=== PATIENT | male | born 1970 | race Caucasian/White ===

== ENCOUNTER 2022-12-25 10:28 | Emergency (ER) | payer MEDICAID, SELFPAY ==
[2022-12-25] VITALS (8 sets, daily range): BP systolic 102–159; BP diastolic 64–99; PULSE 54–75; RESP 16–23; TEMP 36.6–36.8; O2SAT 96–98; BMI 29.5
--- NOTE | 2022-12-25 10:28 | ECG_ITS ---
APPROVED REPORT Exam: Resting ECG HR:70 bpm ECG Measurements Heart Rate 70 AXES NH 193 P 57 QRSd 108 QRS 93 QT 388 T 8 QTc 408 Conclusion SINUS RHYTHM BORDERLINE RIGHT AXIS DEVIATION [QRS AXIS > 90] BORDERLINE ECG UNCONFIRMED REPORT Electronically signed by : Luca Prado MD 12/25/2022 19:33:42
--- NOTE | 2022-12-25 10:33 | HMH.EDGENADL ---
Discharge Plan Disposition Patient Disposition: Home, Self-Care Condition: Good Referrals Follow up/Referrals: Juan Vincent MD [Staff Physician] - See instructions (Please follow-up with Dr. Vincent tomorrow December 26 at 11 AM as a walk-in appointment per Dr. Vincent) Clinical Impressions Clinical Impression: Chest pain Discharge ED Provider: Cathy Del Angel General Adult HPI General Chief complaint: Chest Pain Stated complaint: CHEST PAIN Time Seen by Provider: 12/25/22 10:33 History of Present Illness HPI narrative: Patient is a 52-year-old male with a history of coronary artery disease and 4 stents in the past most recent left heart cath and intervention was in June of last year in [place] who presents today with substernal and left anterior chest wall pain radiating to his left shoulder and left arm worsened with exertion similar to his heart attacks he had in the past currently without any ongoing pain. States the symptoms lasted 2 hours. He tells me that in the past he had a maker. 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 This morning he did take his daily 81 mg aspirin as well as his Brilinta. Related Data Allergies Allergy/AdvReac Type Severity Reaction Status Date / Time Unable to Assess Allergy Verified 12/25/22 10:35 [facility] Disclaimer: The information contained in this section may have been updated after the patient was seen, as this information can be updated by other users. Social History Smoking Status: Current every day smoker alcohol intake: never current occupational status: other Travel in the last 8 weeks: None ROS Obtained: Yes All systems reviewed & no additional complaints except as documented Physical Exam General General appearance: alert Respiratory Respiratory exam: Present normal lung sounds bilaterally; Absent respiratory distress, wheezes or stridor Cardiovascular Cardiovascular exam: Present regular rate; Absent tachycardia Abdominal Exam Abdominal exam: Present soft; Absent distention, tenderness or guarding Neurological Exam Neurological exam: Present alert; Absent oriented X3 or CN II-XII intact Medical Decision Making Kapil Inquiry Pt receiving controlled substance: No Kapil was queried for this patient: No Vital Signs: 12/25/22 10:35 12/25/22 10:44 12/25/22 11:30 Temperature 98.2 F Temperature Source Oral Pulse Rate 68 61 Pulse Rate [Left Radial] 75 Respiratory Rate 20 17 Blood Pressure 154/94 H 116/67 Blood Pressure [Right Arm] 159/99 H Blood Pressure Mean 83 Blood Pressure Mean [Right Arm] 119 02 Sat by Pulse Oximetry 98 98 98 Oxygen Delivery Method Room Air Room Air Room Air 12/25/22 12:00 12/25/22 12:30 12/25/22 13:00 Temperature Temperature Source Pulse Rate 56 L 57 L 54 L Pulse Rate [Left Radial] Respiratory Rate 20 23 Blood Pressure 106/66 L 111/73 102/64 L Blood Pressure [Right Arm] Blood Pressure Mean 80 80 71 Blood Pressure Mean [Right Arm] 02 Sat by Pulse Oximetry 96 97 97 Oxygen Delivery Method Room Air 12/25/22 13:30 Temperature Temperature Source Pulse Rate 54 L Pulse Rate [Left Radial] Respiratory Rate Blood Pressure 123/83 Blood Pressure [Right Arm] Blood Pressure Mean 96 Blood Pressure Mean [Right Arm] 02 Sat by Pulse Oximetry 96 Oxygen Delivery Method Room Air Lab Data Lab results reviewed: Yes I reviewed the patient's lab results. Lab Results 12/25/22 10:34: WBC 8.9, RBC 5.20, Hgb 15.9, Hct 46.9, MCV 90.3, MCH 30.5, MCHC 33.8, RDW 13.4, Plt Count 166, MPV 8.8, Neut % (Auto) 60.0, Lymph % (Auto) 27.4, [place] % (Auto) 9.4 H, Eos % (Auto) 1.8, Baso % (Auto) 1.3, Neut # (Auto) 5.3, Lymph # (Auto) 2.4, [place] # (Auto) 0.8, Eos # (Auto) 0.2, Baso # (Auto) 0.1 12/25/22 10:34: Sodium 137, Potassium 3.9, Chloride 105, Carbon Dioxide 25, Anion Gap 10.9, BUN 16, Creatinine 0.
--- NOTE | 2022-12-25 10:35 | PC.NURSE ---
er at bedside
--- NOTE | 2022-12-25 10:39 | XR_ITS ---
FINAL REPORT CLINICAL HISTORY: chest pain FINDINGS: SINGLE-VIEW CHEST The heart size is normal. The mediastinum is normal. The lungs are clear. There is no pneumothorax. IMPRESSION: No acute cardiopulmonary process. Reviewed, Interpreted and Dictated by Dawit Porter III, MD Transcribed by Tri Jordan Authenticated and [facility]
[2022-12-25 10:51] LABS: Basophils # 0.1 K/mm3 (0-0.2); Basophils % 1.3 % (0.1-2.0); Eosinophils # 0.2 K/mm3 (0.0-0.4); Eosinophils % 1.8 % (0.1-12.0); Hematocrit 46.9 % (42.0-52.0); Hemoglobin 15.9 g/dL (14.1-18.0); Lymphocytes # 2.4 K/mm3 (0.7-4.5); Lymphocytes % 27.4 % (10-50); Mean Corpuscular HGB Conc 33.8 g/dL (31.8-35.4); Mean Corpuscular Hemoglobin 30.5 pg (27.0-31.2); Mean Corpuscular Volume 90.3 fl (80-94); Mean Platelet Volume 8.8 fl (7.4-10.4); Monocytes # 0.8 K/mm3 (0.1-1.0); Monocytes % 9.4 % (1.7-9.3); Neutrophils # 5.3 K/mm3 (1.8-7.8); Platelet Count 166 K/mm3 (142-424); Red Cell Distribution Width 13.4 % (11.5-17.5); White Blood Count 8.9 K/mm3 (4.8-10.8)
[2022-12-25 10:57] LABS: Chloride 105 mmol/L (98-107); Sodium 137 mmol/L (136-145)
[2022-12-25 10:58] LABS: Potassium 3.9 mmoL/L (3.5-5.1)
[2022-12-25 11:00] LABS: Alanine Aminotransferase 27 U/L (12-78); Albumin Level 4.6 g/dl (3.5-5.0); Albumin/Globulin Ratio 1.5 (1.1-1.8); Alkaline Phosphatase 114 U/L (38-126); Anion Gap 10.9 mEq/L (5-15); Aspartate Amino Transferase 29 U/L (17-59); Bilirubin,Total 0.6 mg/dl (0.2-1.3); Blood Urea Nitrogen 16 mg/dl (9-20); Calcium 8.9 mg/dl (8.4-10.2); Carbon Dioxide 25 mmol/L (22.0-30.0); Creatinine Clearance Estimated 138 mL/min (50-200); Estimated Glomerular Filt Rate 88 ml/min (>60); GFR (African American) 106 ML/MIN (>60); Globulin 3.1 g/dL (1.3-3.2); Glucose 220 mg/dl (74-100); Lipase 102 U/L (23-300); Total Protein,Serum 7.7 g/dl (6.3-8.2)
[2022-12-25 11:04] LABS: INR 0.92 (0.9-1.1)
[2022-12-25 11:19] LABS: Troponin I < 0.01 ng/ml (0.00-0.034)
--- NOTE | 2022-12-25 11:38 | PC.NURSE ---
pt is sleeping no complaints
--- NOTE | 2022-12-25 13:01 | PC.NURSE ---
rounded on pt, pillow given
--- NOTE | 2022-12-25 13:39 | PC.NURSE ---
DR TOURE SPEAKING WITH DR DANIELS
--- NOTE | 2022-12-25 13:54 | PC.NURSE ---
checked on pt needs to use restroom but lab is at bedside. he will call out when there finished
--- NOTE | 2022-12-25 14:30 | PC.NURSE ---
pt sleeping no complaints at this time
--- NOTE | 2022-12-25 14:52 | PC.NURSE ---
pt is resting in bed no complaints at this time
--- NOTE | 2022-12-25 15:10 | PC.NURSE ---
er at bedside
[2022-12-25 15:18] LABS: Troponin I < 0.01 ng/ml (0.00-0.034)
--- NOTE | 2022-12-25 15:41 | PC.NURSE ---
called dietary to get pt a sandwich and bag of chips
== END 2022-12-25 15:55 | disposition home or self-care (01) ==
PROVIDERS: Emergency Provider Student in an Organized Health Care Education/Training Program
DX: R07.89 Other chest pain (principal); I25.10 Atherosclerotic heart disease of native coronary artery without angina pectoris; F17.210 Nicotine dependence, cigarettes, uncomplicated
CPT/HCPCS: 36415; 71045; 80053; 83690; 84484; 85025; 85610; 93005; 99285

== ENCOUNTER 2023-01-01 11:57 | Inpatient (IN) | payer OTHER, SELFPAY ==
[2023-01-01] VITALS (25 sets, daily range): BP systolic 101–175; BP diastolic 61–111; PULSE 45–74; RESP 16–20; TEMP 36.7–37; O2SAT 91–100; BMI 30.2; BMI 31.1
--- NOTE | 2023-01-01 11:59 | ECG_ITS ---
APPROVED REPORT Exam: Resting ECG HR:67 bpm ECG Measurements Heart Rate 67 AXES OR 204 P 62 QRSd 102 QRS 98 QT 382 T -15 QTc 397 Conclusion SINUS RHYTHM BORDERLINE RIGHT AXIS DEVIATION [QRS AXIS > 90] NONSPECIFIC ST & T-WAVE ABNORMALITY ABNORMAL ECG UNCONFIRMED REPORT Electronically signed by : Luca Prado MD 01/01/2023 17:05:20
--- NOTE | 2023-01-01 11:59 | XR_ITS ---
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 Pt states he just started taking a new medication w side affects of CP. COMPARISON: 12/25/2022 FINDINGS: A single PA view of the chest was obtained. There is no prior exam for comparison. The cardiac and mediastinal silhouettes are within normal limits. The lungs are clear. There is no effusion or pneumothorax. No acute osseous abnormality is identified. IMPRESSION: No radiographic evidence of acute cardiac or pulmonary disease on this single view of the chest. Reviewed, Interpreted and Dictated by Brunilda Gabriel MD Transcribed by Tri Jordan Authenticated and [facility]
--- NOTE | 2023-01-01 12:00 | HMH.EDGENADL ---
Discharge Plan Disposition Patient Disposition: Admitted As Inpatient Condition: Serious Clinical Impressions Clinical Impression: Acute non-ST elevation myocardial infarction (NSTEMI) Discharge ED Provider: Valentina Dubois Adult HPI General Chief complaint: Chest Pain Stated complaint: chestpain Time Seen by Provider: 01/01/23 11:59 Mode of Arrival: Ambulatory Source of Information: Patient Limitations: No Limitations History of Present Illness HPI narrative: 52-year-old male presenting to the emergency department with chest pain. Pain started yesterday afternoon. It is located on the left side of his chest. Described as burning and aching. Had episodes of pain overnight, but was able to sleep. Today, pain is worse. It is located in the front of the chest. No radiation of the jaw, arm, back. No particular association with eating, breathing, movement or exertion. He has a history of coronary artery disease. Says he had 2 heart attacks. Most recent was within the last year in [place]. He received stents. He now sees Dr. Vincent. Takes atorvastatin, isosorbide mononitrate, nitroglycerin as needed. He has not taken nitro yet today. No fevers, chills, cough, shortness of breath, weakness, nausea, diaphoresis Related Data Home Medications Medication Instructions Recorded Confirmed aspirin 81 mg tablet 81 mg PO DAILY Heart 12/26/22 01/01/23 ticagrelor 90 mg tablet (Brilinta) 90 mg PO BID Blood thinner 12/26/22 01/01/23 atorvastatin 10 mg tablet (Lipitor) 10 mg PO DAILY Cholesterol 01/01/23 01/01/23 isosorbide mononitrate 30 mg 30 mg PO DAILY Chest pain 01/01/23 01/01/23 tablet,extended release 24 hr nitroglycerin 0.4 mg sublingual 0.4 mg sublingual Q5M PRN Chest 01/01/23 01/01/23 tablet Pain Allergies Allergy/AdvReac Type Severity Reaction Status Date / Time Unable to Assess Allergy Verified 12/26/22 11:15 [facility] Disclaimer: The information contained in this section may have been updated after the patient was seen, as this information can be updated by other users. Medical History (Updated 01/01/23 @ 13:39 by Kitty Hebert APRN) Abnormal electrocardiogram [ECG] [EKG] Acute non-ST elevation myocardial infarction (NSTEMI) CAD (coronary atherosclerotic disease) Dyspnea Ex-smoker Hx of myocardial infarction Hyperlipidemia Hypertension Unstable angina Surgical History (Updated 12/26/22 @ 11:16 by Lori Valenzuela) History of cardiac cath History of heart artery stent Social History Smoking Status: Never smoker alcohol intake: never current occupational status: other Travel in the last 8 weeks: None ROS Obtained: Yes All systems reviewed & no additional complaints except as documented Constitutional Constitutional: Denies chills, Denies fever(s) and Denies headache(s) ENT Ears, Nose, Mouth, and Throat: Denies dizziness, Denies headache(s), Denies neck pain and Denies sore throat Cardiovascular Cardiovascular: Reports chest pain, Reports chest pain at rest, Denies dyspnea, Denies palpitations and Denies rapid heart rate Respiratory Respiratory: Denies cough, Denies dyspnea and Denies pain with breathing Gastrointestinal Gastrointestingal: Denies abdominal pain, nausea or vomiting Musculoskeletal Musculoskeletal: Denies back pain, Denies myalgias and Denies neck pain Neurologic Neurologic: Denies dizziness and Denies headache(s) Endocrine Endocrine: Denies palpitations Physical Exam General General appearance: alert and in no apparent distress Head Head exam: atraumatic and normocephalic Eye Eye exam: Present normal appearance and EOMI; Absent conjunctival redness or jaundice ENT ENT exam: Present normal exam, normal oropharynx and mucous membranes moist Chest Chest inspection: Present normal inspection Respiratory Respiratory exam: Present normal lung sounds bilaterally; Absent respiratory distress or wheezes
[2023-01-01 12:11] LABS: Basophils # 0.1 K/mm3 (0-0.2); Basophils % 0.9 % (0.1-2.0); Eosinophils # 0.2 K/mm3 (0.0-0.4); Eosinophils % 1.5 % (0.1-12.0); Hematocrit 44.6 % (42.0-52.0); Hemoglobin 15.1 g/dL (14.1-18.0); Lymphocytes # 2.2 K/mm3 (0.7-4.5); Lymphocytes % 20.2 % (10-50); Mean Corpuscular HGB Conc 33.8 g/dL (31.8-35.4); Mean Corpuscular Hemoglobin 30.4 pg (27.0-31.2); Mean Corpuscular Volume 89.7 fl (80-94); Mean Platelet Volume 10.2 fl (7.4-10.4); Monocytes # 0.9 K/mm3 (0.1-1.0); Monocytes % 7.9 % (1.7-9.3); Neutrophils # 7.7 K/mm3 (1.8-7.8); Neutrophils % 69.5 % (37.0-80.0); Platelet Count 172 K/mm3 (142-424); Red Blood Count 4.97 M/mm3 (4.60-6.20); Red Cell Distribution Width 13.2 % (11.5-17.5)
[2023-01-01 12:18] LABS: Chloride 101 mmol/L (98-107)
[2023-01-01 12:19] LABS: Potassium 3.8 mmoL/L (3.5-5.1); Sodium 136 mmol/L (136-145)
[2023-01-01 12:21] LABS: Alanine Aminotransferase 33 U/L (12-78); Albumin Level 4.6 g/dl (3.5-5.0); Albumin/Globulin Ratio 1.6 (1.1-1.8); Alkaline Phosphatase 108 U/L (38-126); Anion Gap 12.8 mEq/L (5-15); Aspartate Amino Transferase 63 U/L (17-59); Bilirubin,Total 0.6 mg/dl (0.2-1.3); Blood Urea Nitrogen 14 mg/dl (9-20); Carbon Dioxide 26 mmol/L (22.0-30.0); Creatinine Clearance Estimated 141 mL/min (50-200); Estimated Glomerular Filt Rate 88 ml/min (>60); GFR (African American) 106 ML/MIN (>60); Globulin 2.9 g/dL (1.3-3.2); Total Protein,Serum 7.5 g/dl (6.3-8.2)
[2023-01-01 12:22] LABS: Calcium 8.8 mg/dl (8.4-10.2); Glucose 224 mg/dl (74-100)
--- NOTE | 2023-01-01 12:26 | PC.NURSE ---
rad at bs for portable xray
[2023-01-01 12:36] LABS: Troponin I 2.02 ng/ml (0.00-0.034)
--- NOTE | 2023-01-01 12:37 | ECG_ITS ---
APPROVED REPORT Exam: Resting ECG HR:58 bpm ECG Measurements Heart Rate 58 AXES WV 198 P 61 QRSd 113 QRS 94 QT 419 T -10 QTc 416 Conclusion SINUS BRADYCARDIA BORDERLINE RIGHT AXIS DEVIATION [QRS AXIS > 90] MODERATE INTRAVENTRICULAR CONDUCTION DELAY [110+ ms QRS DURATION] MINIMAL ST DEPRESSION [0.025+ mV ST DEPRESSION] ABNORMAL QRS-T ANGLE [QRS-T AXIS DIFFERENCE > 60] ABNORMAL ECG UNCONFIRMED REPORT Electronically signed by : Luca Prado MD 01/01/2023 17:05:06
--- NOTE | 2023-01-01 12:37 | PC.NURSE ---
critical troponin called from lab. notified.
--- NOTE | 2023-01-01 12:44 | PC.NURSE ---
did second ekg at er md request, pt had no complaints at this time call light at bedside
--- NOTE | 2023-01-01 13:18 | PC.NURSE ---
per ER she spoke with anabell cyr from cardiology, states will come see pt
--- NOTE | 2023-01-01 13:20 | PC.NURSE ---
collected covid swab and sent to lab
[2023-01-01 13:23] LABS: Coronavirus 19, PCR Not Detected (NotDetected); Influenza A, PCR Not Detected (NotDetected); Influenza B, PCR Not Detected (NotDetected)
--- NOTE | 2023-01-01 13:25 | PC.NURSE ---
jossie cyrn at BS
--- NOTE | 2023-01-01 13:27 | PC.NURSE ---
anabell cyr states pt is going to go to cardiac cath lab manager today.
--- NOTE | 2023-01-01 13:34 | EXP.CARD.CON ---
History of Present Illness History of Present Illness Consult date: 01/01/23 Requesting physician: Valentina Dubois Consult reason: chest pain Chief complaint: chest pain History of present illness: This is a 52-year-old white gentleman who presented to the emergency department complaints of chest pain. He states that his chest pain started last night. Is located in the left side of his chest. He describes this as a burning, aching and tight sensation. He states it is associated with nausea, vomiting, shortness of breath and diaphoresis. He states that this radiates to his left arm and his back. The patient states that at its worst is a 7 out of 10 in intensity. He states the pain kept him up all night long and he noticed the pain after taking isosorbide and Lipitor last night. He attributed this to side effects of the medications but when the pain was still present this morning he called the cardiology office and decided to come into the emergency department. He states that nothing really worsens the pain and nothing is helping to improve the pain. He does report a history of coronary artery disease with 2 previous MIs. He states his most recent catheterization was in [place] within the last year and he had stents placed. He is on Brilinta and aspirin. He denies any lower extremity edema. He denies any fever, chills, diarrhea, PND or orthopnea. During my examination the patient states that he is still having pain and it does not seem to be going away. He states he feels extremely fatigued and just does not feel right. [facility] Disclaimer: The information contained in this section may have been updated after the patient was seen, as this information can be updated by other users. Medical History (Updated 01/01/23 @ 13:39 by Kitty Hebert APRN) Abnormal electrocardiogram [ECG] [EKG] Acute non-ST elevation myocardial infarction (NSTEMI) CAD (coronary atherosclerotic disease) Dyspnea Ex-smoker Hx of myocardial infarction Hyperlipidemia Hypertension Unstable angina Surgical History (Updated 12/26/22 @ 11:16 by Lori Valenzuela) History of cardiac cath History of heart artery stent Social History Smoking Status: Never smoker alcohol intake: never current occupational status: other Travel in the last 8 weeks: None Review of Systems Review of Systems Review of systems:: pertinent systems reviewed and negative unless documented below Constitutional Constitutional: Reports system reviewed and no additional complaints, except as documented and Denies headache(s) Eyes Eyes: Reports system reviewed and no additional complaints, except as documented ENT Ears, Nose, Mouth, and Throat: Reports system reviewed and no additional complaints, except as documented, Denies dizziness and Denies headache(s) *Cardiovascular Cardiovascular: Reports system reviewed and no additional complaints, except as documented, Reports chest pain, Reports chest pain at rest, Reports chest pain with activity, Reports diaphoresis, Reports dyspnea, Reports dyspnea on exertion and Reports radiating jaw, neck or arm pain *Respiratory Respiratory: Reports system reviewed and no additional complaints, except as documented, Reports dyspnea and Reports dyspnea on exertion *Gastrointestinal Gastrointestinal: Reports system reviewed and no additional complaints, except as documented, Reports nausea and Reports vomiting *Genitourinary Genitourinary: Reports system reviewed and no additional complaints, except as documented *Musculoskeletal Musculoskeletal: Reports system reviewed and no additional complaints, except as documented Integumentary/Breasts Skin/Breast: Reports system reviewed and no additional complaints, except as documented *Neurologic Neurologic: Reports system reviewed and no additional complaints, except as documented, Denies dizziness and Denies headache(s) Psychiatric Psychiatric: Reports system rev
--- NOTE | 2023-01-01 13:40 | PC.NURSE ---
Pt placed into gown and prepped to go to lab technician. pts belongings placed into belonging bags with his name labels on bag.
--- NOTE | 2023-01-01 13:41 | PC.NURSE ---
ILA SAMANO speaking with dr. pires
--- NOTE | 2023-01-01 13:42 | PC.NURSE ---
notified care management of admission
--- NOTE | 2023-01-01 13:54 | IR_ITS ---
APPROVED REPORT Patient Location: Emergent Section Housekeeper: CESARIO Claudio RT (R) PROCEDURES Left heart catheterization Left ventriculogram Selective coronary angiogram Drug-eluting stent deployment to the proximal mid and distal dominant right coronary INDICATION Acute non-ST elevation myocardial infarction, Coronary artery disease Informed consent was obtained prior to the procedure. COMPLICATIONS None Estimated Blood Loss: Less than 10 mls TECHNIQUE One percent lidocaine used to anesthetize the right anterior aspect of the wrist. The right radial artery was accessed via the Seldinger technique. A 6 Sami sheath was placed in the right radial artery. 2.5 mg of verapamil, 800 mcg of nitroglycerin, 1mg Lidocaine and 5000 U Heparin were given through the arterial sheath. The papa catheter was also used to perform left heart catheterization, left ventriculogram and selective coronary angiogram. At the end the diagnostic angiogram therapeutic heparin was administered giving a therapeutic ACT and the guide catheter was used to intubate the right coronary artery followed by Choice PT extra-support wire. A 3.5 x 38 mm resolute [place] stent was deployed at 20 kendrick reducing the critical stenosis to 0%. An additional 3.5 x 38 mm resolute [place] stent was placed distal to the for stent yet still overlapping and deployed at 15 kendrick reducing the critical stenosis to 0%. The balloon was brought back between the 2 stents and deployed at 20 kendrick to mesh the 2 stents. At the end of the procedure the apparatus was removed the sheath was removed good hemostasis was achieved using TR banding patient was transferred to the postop putting in stable condition. DAKOTA I flow was present at the beginning of the procedure with DAKOTA-3 flow at the end of the procedure ANGIOGRAPHIC RESULTS The left main artery Has an ostial 20% stenosis and a distal 30% stenosis The left anterior descending artery Has a proximal concentric calcified 70 to 80% stenosis immediately adjacent to a large first diagonal artery. There is an additional 30 to 40% mid vessel stenosis. The large first diagonal artery has an ostial proximal 70 to 80% stenosis The circumflex artery Is a nondominant yet still large vessel with a proximal 60 to 70% stenosis in a large obtuse marginal artery The right coronary artery Is a large dominant vessel and subtotally occluded in the proximal segment. Once the stent procedure was complete there was excellent inline flow with wide patency of the proximal mid and distal dominant right coronary artery. The posterior lateral branch and posterior descending artery had diffuse 20 and 30% stenoses The LARKIN ventriculogram reveals Dilated ventricle ejection fraction 55% The left ventricular end-diastolic pressure Severe to critically elevated at 55 mmHg IMPRESSION Critical coronary disease as described above Successful reconstruction of the proximal mid and distal dominant right coronary artery critical disease reduced to 0% with 2 contiguous drug-eluting stents Persistent severe stenosis in the proximal LAD involving a large first diagonal artery as well as a large first obtuse marginal artery Slight left ventricular dilatation with preserved ejection fraction Critically elevated LVEDP PLAN 1. Dual antiplatelet therapy 2. LDL less than 55 to be achieved with high intensity statin 3. ALEXANDER inhibitor's beta-blockers 4. Avoidance of tobacco products 5. Patient be brought back to the Director Targeted Marketing in 2 weeks and will undergo staged stenting of the proximal LAD and first diagonal artery as well as the first obtuse marginal artery 6. Cardiac rehabilitation after the subsequent staged stent procedure 7. Diuretics prio
--- NOTE | 2023-01-01 13:55 | PC.NURSE ---
dr andrews at bedside
--- NOTE | 2023-01-01 14:06 | PC.NURSE ---
rad is currently at bedside doing an echo
--- NOTE | 2023-01-01 14:07 | HMH.PHAINT1 ---
Pharmacy Intervention Comments: Medication reconciliation completed using external fill history and med list from 12/26/22 office visit.
--- NOTE | 2023-01-01 14:18 | PC.WOUNDNOTE ---
spoke to adriana in the oil field laborer said in about 20 minutes pt could be taken to the oil field laborer
[2023-01-01 15:37] LABS: CATHL Activated Clotting Time > 400 SEC (74-125)
--- NOTE | 2023-01-01 16:08 | EXP.HP ---
History of Present Illness *Admission Date: 01/01/23 *Reason for visit:: Chief complaint: Chest pain *History of present illness: This is a 52-year-old male that presents to [facility] emergency department secondary to chest pain. His past medical history significant for coronary artery disease, previous heart attacks, medical noncompliance and uncontrolled blood sugars. He reports that he has been experiencing chest pain since early December and went to see a fast food cook on December 26 to discuss his symptomatology. He reported intermittent chest pain that would last approximately 20 minutes and radiate to his left chest area and down his arms creating some numbness to his hands. The pain would be approximately a 4 on a 1-10 scale but occasionally will get up to 7. He reported associated shortness of breath with exertion. He was placed on cardioprotective medications and a plan was made for further cardiovascular assessment. Last night he reports that he started experiencing chest pain again characterized as burning, aching and tightness. The pain last night got above a 7 on a 1-10 pain scale. It radiated to his left chest and down his arms. He experienced associated nausea. He presented to the ED for further evaluation. In the ED his troponin level was elevated and his EKG identified nonspecific ST-T changes. His HEART Score = 7 and his DAKOTA score = 5. Cardiology was consulted out of the ED. [facility] Medical History (Updated 01/01/23 @ 16:13 by Jaciel Donovan MD) CAD (coronary atherosclerotic disease) Ex-smoker Hx of myocardial infarction Hyperlipidemia Hypertension Tobacco dependence Unstable angina Surgical History (Updated 12/26/22 @ 11:16 by Lori Valenzuela) History of cardiac cath History of heart artery stent Family History (Updated 01/01/23 @ 16:13 by Jaciel Donovan MD) Mother Motor vehicle accident Father Homicide Social History (Updated 01/01/23 @ 16:14 by Jaciel Donovan MD) Smoking Status: Former smoker years smoked: 35 smoking status stop date: November 2022 alcohol intake: never current occupational status: other Travel in the last 8 weeks: None Review of Systems Review of Systems Review of systems:: pertinent systems reviewed and negative unless documented below Constitutional Constitutional: Denies headache(s) ENT Ears, Nose, Mouth, and Throat: Denies dizziness and Denies headache(s) *Cardiovascular Cardiovascular: Reports chest pain, Reports chest pain at rest, Reports dyspnea, Reports dyspnea on exertion, Denies palpitations and Reports radiating jaw, neck or arm pain *Respiratory Respiratory: Reports dyspnea and Reports dyspnea on exertion *Neurologic Neurologic: Reports system reviewed and no additional complaints, except as documented, Denies dizziness and Denies headache(s) Endocrine Endocrine: Denies palpitations Meds Home Medications and Allergies Home Medications Medication Instructions Recorded Confirmed Type aspirin 81 mg tablet 81 mg PO DAILY Heart 12/26/22 01/01/23 History ticagrelor 90 mg tablet (Brilinta) 90 mg PO BID Blood thinner 12/26/22 01/01/23 History atorvastatin 10 mg tablet (Lipitor) 10 mg PO DAILY Cholesterol 01/01/23 01/01/23 History isosorbide mononitrate 30 mg 30 mg PO DAILY Chest pain 01/01/23 01/01/23 History tablet,extended release 24 hr nitroglycerin 0.4 mg sublingual 0.4 mg sublingual Q5M PRN Chest 01/01/23 01/01/23 History tablet Pain New Prescriptions to Start Prescriptions: Allergies Allergy/AdvReac Type Severity Reaction Status Date / Time latex Allergy Verified 01/01/23 14:50 Exam Data for Last 24 hours Vital signs and Labs for Last 24 Hours: Temp Pulse Resp BP Pulse Ox 98.3 F 67 18 113/76 91 L 01/01/23 12:08 01/01/23 15:40 01/01/23 15:40 01/01/23 15:40 01/01/23 15:40 Laboratory Results - last 24 hr 01/01/23 12:02: WBC 11.0 H, RBC 4.97, Hgb 15.1,
--- NOTE | 2023-01-01 18:20 | PC.NURSE ---
A&OX4. TOLERATING RA WELL. PT STATES HE FEELS MUCH BETTER AT THIS TIME. ADEQUATE U/O AND LARGE APPETITE. NO NEEDS OR C/O SINCE ARRIVAL TO FLOOR. VSS. CATH SITE TO TO R WRIST, CDI.
[2023-01-01 19:59] LABS: POC Glucose,Bedside 129 (70-110)
[2023-01-02] VITALS: BP 112/60; PULSE 63; PULSE 70; RESP 18; TEMP 37.4; O2SAT 97
[2023-01-02 02:34] LABS: POC Glucose,Bedside 172 (70-110)
[2023-01-02 04:00] VITALS: BP 105/57; PULSE 60; RESP 18; TEMP 37.4; O2SAT 96; BMI 29.9
--- NOTE | 2023-01-02 05:28 | PC.NURSE ---
pt. rested well t/o shift. no c/o pain. radial band was removed, telfa and tegaderm were applied to site, cdi at this time. call russo is in reach.
[2023-01-02 06:10] LABS: POC Glucose,Bedside 159 (70-110)
[2023-01-02 06:46] LABS: Basophils # 0.1 K/mm3 (0-0.2); Basophils % 0.8 % (0.1-2.0); Eosinophils # 0.2 K/mm3 (0.0-0.4); Eosinophils % 1.6 % (0.1-12.0); Hematocrit 45.3 % (42.0-52.0); Hemoglobin 15.5 g/dL (14.1-18.0); Lymphocytes # 2.4 K/mm3 (0.7-4.5); Lymphocytes % 24.3 % (10-50); Mean Corpuscular HGB Conc 34.1 g/dL (31.8-35.4); Mean Corpuscular Hemoglobin 30.5 pg (27.0-31.2); Mean Corpuscular Volume 89.5 fl (80-94); Mean Platelet Volume 9.2 fl (7.4-10.4); Monocytes % 9.5 % (1.7-9.3); Neutrophils # 6.4 K/mm3 (1.8-7.8); Neutrophils % 63.7 % (37.0-80.0); Platelet Count 192 K/mm3 (142-424); Red Blood Count 5.06 M/mm3 (4.60-6.20); Red Cell Distribution Width 13.4 % (11.5-17.5)
[2023-01-02 06:57] LABS: Alanine Aminotransferase 36 U/L (12-78); Albumin Level 4.4 g/dl (3.5-5.0); Alkaline Phosphatase 109 U/L (38-126); Anion Gap 11.8 mEq/L (5-15); Aspartate Amino Transferase 79 U/L (17-59); Bilirubin,Direct 0.3 mg/dl (0.0-0.4); Bilirubin,Indirect 0.6 mg/dL (0.0-0.9); Bilirubin,Total 0.9 mg/dl (0.2-1.3); Bilirubin,Unconjugated 0.6 mg/dL (0.0-1.1); Blood Urea Nitrogen 13 mg/dl (9-20); Calcium 8.9 mg/dl (8.4-10.2); Carbon Dioxide 26 mmol/L (22.0-30.0); Chloride 102 mmol/L (98-107); Chol/HDL Ratio 7.4 (1-3.5); Cholesterol 228 mg/dl (140-200); Creatinine Clearance Estimated 130 mL/min (50-200); Estimated Glomerular Filt Rate 78 ml/min (>60); GFR (African American) 94 ML/MIN (>60); Glucose 169 mg/dl (74-100); HDL Cholesterol 31 mg/dl (40-60); Potassium 3.8 mmoL/L (3.5-5.1); Sodium 136 mmol/L (136-145); Total Protein,Serum 7.2 g/dl (6.3-8.2)
[2023-01-02 06:59] LABS: Magnesium 2.4 mg/dl (1.6-2.3)
[2023-01-02 07:06] LABS: NT Pro Brain Natriuretic Pep. 319 pg/mL (0-125)
[2023-01-02 07:08] LABS: Direct LDL Cholesterol 68.99 mg/dL (100-129)
[2023-01-02 07:19] LABS: Triglycerides 860 mg/dl (30-150)
[2023-01-02 08:00] VITALS: BP 149/66; PULSE 60; PULSE 67; RESP 22; TEMP 36.7; O2SAT 96
[2023-01-02 08:23] LABS: Hemoglobin A1C 6.8 % (4.0-6.0)
--- NOTE | 2023-01-02 09:00 | EXP.CARD.PN ---
Subjective Subjective Date: 01/02/23 Time: 08:30 Principal diagnosis: nonstemi, CAD Interval history: This is a 52-year-old gentleman who presented to the emergency department complaints of chest pain. He was found to have a non-STEMI and underwent left cardiac catheterization yesterday. The patient had 2 stents placed to his right coronary artery with persistent disease to the LAD and first diagonal artery which will need to be addressed in approximately 2 weeks. This morning he denies any chest pain or pressure. He denies any shortness of breath or edema. He denies any fever, chills, nausea, vomiting, diarrhea, PND orthopnea. The patient states that he feels much better now than he did prior to coming into the hospital. Exam Data for Last 24 hours Vital signs and Labs for Last 24 Hours: Temp Pulse Resp BP Pulse Ox 98.1 F 67 22 149/66 H 96 01/02/23 08:00 01/02/23 08:00 01/02/23 08:00 01/02/23 08:00 01/02/23 08:00 Laboratory Results - last 24 hr 01/01/23 12:02: WBC 11.0 H, RBC 4.97, Hgb 15.1, Hct 44.6, MCV 89.7, MCH 30.4, MCHC 33.8, RDW 13.2, Plt Count 172, MPV 10.2, Neut % (Auto) 69.5, Lymph % (Auto) 20.2, Campbell % (Auto) 7.9, Eos % (Auto) 1.5, Baso % (Auto) 0.9, Neut # (Auto) 7.7, Lymph # (Auto) 2.2, Campbell # (Auto) 0.9, Eos # (Auto) 0.2, Baso # (Auto) 0.1 01/01/23 12:02: Sodium 136, Potassium 3.8, Chloride 101, Carbon Dioxide 26, Anion Gap 12.8, BUN 14, Creatinine 0.90, Estimated Creat Clear 141, Estimated GFR 88, Est GFR ( Amer) 106, Glucose 224 H, Calcium 8.8, Total Bilirubin 0.6, AST 63 H, ALT 33, Alkaline Phosphatase 108, Troponin I 2.02 H, Total Protein 7.5, Albumin 4.6, Globulin 2.9, Albumin/Globulin Ratio 1.6 01/01/23 13:19: SARS-CoV-2 (PCR) Not detected, Influenza A Untype (PCR) Not detected, Influenza Type B (PCR) Not detected 01/01/23 15:55: Activated Clotting Time > 400 H* 01/01/23 16:46: POC Glucose 172 H 01/01/23 19:51: POC Glucose 129 H 01/02/23 06:02: POC Glucose 159 H 01/02/23 06:20: WBC 10.0, RBC 5.06, Hgb 15.5, Hct 45.3, MCV 89.5, MCH 30.5, MCHC 34.1, RDW 13.4, Plt Count 192, MPV 9.2, Neut % (Auto) 63.7, Lymph % (Auto) 24.3, Campbell % (Auto) 9.5 H, Eos % (Auto) 1.6, Baso % (Auto) 0.8, Neut # (Auto) 6.4, Lymph # (Auto) 2.4, Campbell # (Auto) 1.0, Eos # (Auto) 0.2, Baso # (Auto) 0.1 01/02/23 06:20: Sodium 136, Potassium 3.8, Chloride 102, Carbon Dioxide 26, Anion Gap 11.8, BUN 13, Creatinine 1.00, Estimated Creat Clear 130, Estimated GFR 78, Est GFR ( Amer) 94, Glucose 169 H D, Calcium 8.9, Total Bilirubin 0.9, Direct Bilirubin 0.3, Conjugated Bilirubin 0.0, Indirect Bilirubin 0.6, Unconjugated Bilirubin 0.6, AST 79 H D, ALT 36, Alkaline Phosphatase 109, Total Protein 7.2, Albumin 4.4, Triglycerides 860 H, Cholesterol 228 H, LDL Cholesterol Direct 68.99 L, HDL Cholesterol 31 L, Cholesterol/HDL Ratio 7.4 H 01/02/23 06:20: Hemoglobin A1c 6.8 H 01/02/23 06:20: Magnesium 2.4 H, NT-Pro-B Natriuret Pep 319 H I & O for Last 24 hours: Intake & Output 12/30/22 12/31/22 01/01/23 01/02/23 23:59 23:59 23:59 23:59 Intake Total 240 / 240 240 / 240 Output Total 3450 / 4650 1200 / 1200 Balance -3210 / -4410 -960 / -960 Weight 249 lb 240 lb 8 oz Narrative: Telemetry strip is sinus rhythm. Left heart cath shows: Critical coronary disease as described above Successful reconstruction of the proximal mid and distal dominant right coronary artery critical disease reduced to 0% with 2 contiguous drug-eluting stents Persistent severe stenosis in the proximal LAD involving a large first diagonal artery as well as a large first obtuse marginal artery Slight left ventricular dilatation with preserved ejection fraction Critically elevated LVEDP PLAN 1. Dual antiplatelet therapy 2. LDL less than 55 to be achieved with high intensity statin 3. ALEXANDER inhibitor's beta-blockers 4. Avoidance of tobacco products 5. Patient be brought back to the [facility] in 2 weeks and will undergo staged stenting of the proximal LAD and f
--- NOTE | 2023-01-02 09:27 | EXP.DC.SUM ---
General Admission date:: 01/01/23 Discharge date: 01/02/23 HPI HPI HPI: This is a 52-year-old male that presents to [facility] emergency department secondary to chest pain. His past medical history significant for coronary artery disease, previous heart attacks, medical noncompliance and uncontrolled blood sugars. He reports that he has been experiencing chest pain since early December and went to see a consumer affairs specialist on December 26 to discuss his symptomatology. He reported intermittent chest pain that would last approximately 20 minutes and radiate to his left chest area and down his arms creating some numbness to his hands. The pain would be approximately a 4 on a 1-10 scale but occasionally will get up to 7. He reported associated shortness of breath with exertion. He was placed on cardioprotective medications and a plan was made for further cardiovascular assessment. Last night he reports that he started experiencing chest pain again characterized as burning, aching and tightness. The pain last night got above a 7 on a 1-10 pain scale. It radiated to his left chest and down his arms. He experienced associated nausea. He presented to the ED for further evaluation. In the ED his troponin level was elevated and his EKG identified nonspecific ST-T changes. His HEART Score = 7 and his DAKOTA score = 5. Cardiology was consulted out of the ED. Hospital Course Hospital Course Hospital Course: The patient was admitted to the medical unit with telemetry monitoring cardiology consult. He underwent heart cath with identified multivessel disease. He received 2 stents to the RCA and staged to return for repeat cath in 2 weeks to address LAD and diagonal disease. Post procedurally he identified improvement and reported no further chest pain or concerns with palpitations. With his elevated LVEDP he was started on loop diuretic therapy with effective diuresing. Cardiology made discharge medication recommendations. He voiced understanding on the importance of follow-up with his cardiology team and PCP. We have discussed coronary disease risk factors and he reports that he has quit smoking several weeks ago. He was identified with elevated glucose during his admission with a hemoglobin A1c of 6.8%. He was started on Jardiance and will follow-up with his PCP for further recommendations. He is advised to walk daily for exercise. I spent 35 minutes in [id number] time with the patient and nursing staff concerning the discharge process. We discussed the admitting diagnoses and hospital course. We discussed identified improvement and the patient's desire to be discharged. We reviewed inpatient studies and imaging. The patient voiced understanding on the importance of follow-up with his primary care provider and specialist(s). The patient plans to be compliant with the medication regimen prescribed and follow-up appointments. He understands that he can return to the emergency department with any sudden changes or concerns. Exam Data for Last 24 hours Vital signs and Labs for Last 24 Hours: Temp Pulse Resp BP Pulse Ox 98.1 F 67 22 149/66 H 96 01/02/23 08:00 01/02/23 08:00 01/02/23 08:00 01/02/23 08:00 01/02/23 08:00 Laboratory Results - last 24 hr 01/01/23 12:02: WBC 11.0 H, RBC 4.97, Hgb 15.1, Hct 44.6, MCV 89.7, MCH 30.4, MCHC 33.8, RDW 13.2, Plt Count 172, MPV 10.2, Neut % (Auto) 69.5, Lymph % (Auto) 20.2, Blair % (Auto) 7.9, Eos % (Auto) 1.5, Baso % (Auto) 0.9, Neut # (Auto) 7.7, Lymph # (Auto) 2.2, Blair # (Auto) 0.9, Eos # (Auto) 0.2, Baso # (Auto) 0.1 01/01/23 12:02: Sodium 136, Potassium 3.8, Chloride 101, Carbon Dioxide 26, Anion Gap 12.8, BUN 14, Creatinine 0.90, Estimated Creat Clear 141, Estimated GFR 88, Est GFR ( Amer) 106, Glucose 224 H, Calcium 8.8, Total Bilirubin 0.6, AST 63 H, ALT 33, Alkaline Phosphatase 108, Troponin I 2.02 H, Total Protein 7.5, Albumin 4.6, Globulin 2.9, Albumin/Globulin Ratio
--- NOTE | 2023-01-02 10:23 | P.CONPHA_ITS ---
PHA Package Reinspector Discharge Med Dice Table Operator: Willard Amaral has received discharge medication counseling on the following medications: ASPIRIN 81 MG DAILY ATORVASTATIN 80 MG HS BRILINTA 90 MG BID LOSARTAN 50 MG DAILY METOPROLOL SUCCINATE 12.5 MG DAILY
--- NOTE | 2023-01-05 13:56 | CARE MANAGER ---
Contacted patient related to hospital discharge. Patient states he got all but 2 of his prescriptions that the insurance wouldn't cover. One was baby ASA and he would get OTC, buthe can't remember the other one. He states he is doing well and he does need to be set up with PCP, but he can't talk any longer at this time as he is trying to work. Will call back tomorrow. BURTON Gaona
== END 2023-01-02 10:30 | disposition home or self-care (01) | DRG 247 ==
LOC: ER 12:45 → 2ND 14:08
PROVIDERS: Internal Medicine; Nurse Practitioner Family; Admitting Provider Family Medicine; Emergency Provider Emergency Medicine; Visit Provider Family Medicine
PROC: 027036Z Dilation of Coronary Artery, One Artery with Three Drug-eluting Intraluminal Devices, Percutaneous Approach (ICD-10-PCS; principal; 2023-01-01 14:30)
DX: I21.4 Non-ST elevation (NSTEMI) myocardial infarction (principal); I25.2 Old myocardial infarction; I25.10 Atherosclerotic heart disease of native coronary artery without angina pectoris; I10 Essential (primary) hypertension; E78.2 Mixed hyperlipidemia; Z87.891 Personal history of nicotine dependence; R73.9 Hyperglycemia, unspecified
CPT/HCPCS: 36415; 71045; 80048; 80053; 80061; 80076; 82962; 83036; 83735; 83880; 84484; 85025; 85347; 92941; 93005; 93306; 93458; 99152; 99153; 99285; 99291; C1725; C1760; C1769; C1876; C9606; C9803; J1644; Q9967; U0003; U0005

== ENCOUNTER 2023-01-15 14:49 | Inpatient (IN) | payer OTHER, SELFPAY ==
[2023-01-15] VITALS (19 sets, daily range): BP systolic 101–144; BP diastolic 52–92; PULSE 57–80; RESP 15–20; TEMP 36.4–37; O2SAT 93–100; BMI 30.2
--- NOTE | 2023-01-15 08:14 | IR_ITS ---
APPROVED REPORT Patient Location: Outpatient Traveling Storekeeper: CESARIO Roberto RT (R) PROCEDURES Selective coronary angiogram Intravascular lithotripsy to the proximal and mid LAD Drug-eluting stent deployment to the proximal and mid LAD Angioplasty to the diagonal artery followed by drug-eluting stent deployment to the first diagonal artery INDICATION Coronary artery disease, Staged procedure due to complex coronary artery disease Informed consent was obtained prior to the procedure. COMPLICATIONS None Estimated Blood Loss: Less than 10 ML TECHNIQUE One percent lidocaine used to anesthetize the right anterior aspect of the wrist. The right radial artery was accessed via the Seldinger technique. A 6 Romanian sheath was placed in the right radial artery. 150 mg of magnesium sulfate, 800 mcg of nitroglycerin, 1mg Lidocaine and 5000 U Heparin were given through the arterial sheath. The papa catheter was also used to perform selective coronary angiography followed by therapeutic heparin being administered giving a therapeutic ACT. Wire was placed in both the LAD and the diagonal artery. Predilatation was made in the LAD followed by a 3.5 x 38 mm resolute Seymour stent deployed at 20 kendrick. The vessel was heavily calcified and the stent was not fully deployed. At 3.5 x 12 mm balloon was deployed at 24 kendrick along with a 3.75 x 12 mm balloon also deployed at 24 kendrick to further post dilate. A 3.5 x 12 mm lithotripsy balloon was delivered and a total of 8 pulsations was delivered at 468 and 10 kendrick along the LAD. Following this a 3.75 mm balloon was used to post dilate the stenotic area. An additional 4 mm x 12 mm balloon was then deployed at 24 kendrick up and down the LAD stent. There is severe stenosis in the first diagonal artery therefore wires were placed down the first diagonal artery. A guide liner was required and predilatation was required using a 1.5 mm balloon and then a 2 mm balloon and then a 2.5 and 2.75 mm balloon. Eventually a 2.5 x 15 mm resolute Cleveland stent was placed in the ostial segment of the first diagonal artery and deployed at 20 kendrick. Upon deflation there was a nonflow limiting dissection distal to the stent. An additional 3 mm balloon was placed into the LAD adjacent to the first diagonal artery and then dilated at 24 kenrdick followed by an additional 4.0 x 12 mm balloon deployed up and down the LAD making sure none of the diagonal artery struts were sticking out or encroaching upon the LAD lumen. DAKOTA-3 flow was present on the LAD and first diagonal artery before and after the procedure. Although the diagonal artery dissection was angiographically impressive there is no flow limitation. It was decided to admit patient to the hospital for further admission overnight and then reassess in the morning. At the end of procedure the apparatus was removed the sheath was removed good hemostasis was achieved using TR banding patient was transferred to the postop putting in stable condition IMPRESSION Severe calcified disease in the proximal and mid LAD with successful lithotripsy followed by drug-eluting stent deployment reducing the calcified stenosis to 0%. Successful stenting of the ostial segment of the first diagonal artery complicated by a nonflow limiting dissection distal to the stent accompanied by DAKOTA-3 flow PLAN 1. Dual antiplatelet therapy 2. Monitor overnight 3. Reassess in the morning and either continue treating medically or consider bringing patient back to the [facility] and proceed with right groin access and then stenting of the first diagonal artery. 4. Avoidance of tobacco products 5. LDL less than 55 to be achieved with high intensity statin 6. Cardiac rehabilitatio
[2023-01-15 10:34] LABS: Basophils # 0.1 K/mm3 (0-0.2); Basophils % 1.1 % (0.1-2.0); Eosinophils # 0.3 K/mm3 (0.0-0.4); Eosinophils % 3.4 % (0.1-12.0); Hematocrit 43.4 % (42.0-52.0); Hemoglobin 14.9 g/dL (14.1-18.0); Lymphocytes # 2.4 K/mm3 (0.7-4.5); Lymphocytes % 26.9 % (10-50); Mean Corpuscular HGB Conc 34.3 g/dL (31.8-35.4); Mean Corpuscular Hemoglobin 30.5 pg (27.0-31.2); Mean Corpuscular Volume 88.9 fl (80-94); Mean Platelet Volume 8.8 fl (7.4-10.4); Monocytes # 0.7 K/mm3 (0.1-1.0); Neutrophils # 5.5 K/mm3 (1.8-7.8); Neutrophils % 60.6 % (37.0-80.0); Platelet Count 202 K/mm3 (142-424); Red Blood Count 4.88 M/mm3 (4.60-6.20); Red Cell Distribution Width 13.2 % (11.5-17.5)
[2023-01-15 10:37] LABS: Chloride 101 mmol/L (98-107); Sodium 136 mmol/L (136-145)
[2023-01-15 10:38] LABS: Potassium 4.1 mmoL/L (3.5-5.1)
[2023-01-15 10:40] LABS: Blood Urea Nitrogen 15 mg/dl (9-20); Creatinine Clearance Estimated 131 mL/min (50-200); Estimated Glomerular Filt Rate 78 ml/min (>60); GFR (African American) 94 ML/MIN (>60)
[2023-01-15 10:41] LABS: Anion Gap 10.1 mEq/L (5-15); Calcium 8.7 mg/dl (8.4-10.2); Carbon Dioxide 29 mmol/L (22.0-30.0); Glucose 238 mg/dl (74-100)
--- NOTE | 2023-01-15 15:09 | EXP.CARD.CON ---
History of Present Illness History of Present Illness Consult date: 01/15/23 Requesting physician: Jaciel Donovan Chief complaint: post procedure Additional Medical History:: 1. CAD A. Prior stenting B. NSTEMI, 01/01/2023, 2 RADHA to RCA. Remaining LAD disease to be treated in 2 wks. C. RADHA to LAD, 01/15/2023. diagonal dissection. 2. HTN A. Echo, 01/01/2023, normal LV size and thickness with EF 40-50%. Akinetic inferior and inferoseptal orona. RV systolic function normal. No significant valve disease 3. HLD 4. Tobacco dependence 5. Ischemic cardiomyopathy, EF 40-50%, 12/2022 History of present illness: 52-year-old white male came to the cardiac [facility] today for planned outpatient procedure. He did have a recent non-STEMI with stenting of the right coronary artery earlier this month. Today, patient did receive Stents to the LAD with a large load of contrast used and notation of diagonal dissection. It is recommended that he be admitted overnight for observation for possible complications from the diagonal dissection. Patient will be admitted to the hospitalist service with plans for reevaluation by cardiology in the a.m. and possible consideration of repeat cath if felt indicated. [facility] Disclaimer: The information contained in this section may have been updated after the patient was seen, as this information can be updated by other users. Medical History CAD (coronary atherosclerotic disease) Ex-smoker Hx of myocardial infarction Hyperlipidemia Hypertension Tobacco dependence Unstable angina Surgical History History of cardiac cath History of heart artery stent Family History Mother Motor vehicle accident Father Homicide Social History Smoking Status: Former smoker years smoked: 35 smoking status stop date: November 2022 alcohol intake: never current occupational status: other Travel in the last 8 weeks: None Review of Systems Review of Systems Review of systems:: pertinent systems reviewed and negative unless documented below *Cardiovascular Cardiovascular: Denies chest pain and Reports dyspnea on exertion *Respiratory Respiratory: Reports dyspnea on exertion Exam Data for Last 24 hours Vital signs and Labs for Last 24 Hours: Temp Pulse Resp BP Pulse Ox 98.6 F 64 20 138/72 95 01/15/23 10:13 01/15/23 15:04 01/15/23 15:04 01/15/23 15:04 01/15/23 15:04 Laboratory Results - last 24 hr 01/15/23 10:00: WBC 9.0, RBC 4.88, Hgb 14.9, Hct 43.4, MCV 88.9, MCH 30.5, MCHC 34.3, RDW 13.2, Plt Count 202, MPV 8.8, Neut % (Auto) 60.6, Lymph % (Auto) 26.9, Mclean % (Auto) 8.0, Eos % (Auto) 3.4, Baso % (Auto) 1.1, Neut # (Auto) 5.5, Lymph # (Auto) 2.4, Mclean # (Auto) 0.7, Eos # (Auto) 0.3, Baso # (Auto) 0.1 01/15/23 10:00: Sodium 136, Potassium 4.1, Chloride 101, Carbon Dioxide 29, Anion Gap 10.1, BUN 15, Creatinine 1.00, Estimated Creat Clear 131, Estimated GFR 78, Est GFR ( Amer) 94, Glucose 238 H, Calcium 8.7 I & O for Last 24 hours: Intake & Output 01/13/23 01/14/23 01/15/23 01/16/23 11:59 11:59 11:59 11:59 Weight 242 lb Constitutional Constitutional: no acute distress *Routine Respiratory Exam Respiratory: Present CTA bilaterally *Routine Cardiovascular Exam Cardiovascular: Present RRR *Routine Extremities Exam Extremities: Absent edema Meds Home Medications and Allergies Home Medications Medication Instructions Recorded Confirmed Type nitroglycerin 0.4 mg sublingual 0.4 mg sublingual Q5MINP PRN Chest 01/01/23 01/15/23 History tablet Pain aspirin 81 mg tablet,delayed 81 mg PO DAILY HEART HEALTH 01/15/23 01/15/23 History release atorvastatin 40 mg tablet (Lipitor) 40 mg PO DAILY Cholesterol 01/15/23 01/15/23 His
--- NOTE | 2023-01-15 15:10 | PC.NURSE ---
Pt arrived to the floor at this time
[2023-01-15 15:13] LABS: CATHL Activated Clotting Time 222 SEC (74-125)
[2023-01-15 15:13] LABS: CATHL Activated Clotting Time 308 SEC (74-125)
--- NOTE | 2023-01-15 15:28 | HMH.PHAINT1 ---
Pharmacy Intervention Comments: MEDICATION RECONCILIATION COMPLETED ON PATIENT USING EXTERNAL FILL HISTORY FROM PHARMACY AND LIST FROM CARDIOLOGY OFFICE. -BRENDAN ROLLINS, LAURAD
--- NOTE | 2023-01-15 17:01 | EXP.HP ---
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 He underwent LAD and first circumflex intervention with drug-eluting stent deployment. He reports that his chest pain has improved and identifies no associated dyspnea or diaphoresis. His left heart cath was complex requiring lithotripsy and 2 vessel stent deployment. Coronary artery dissection was identified. He is being observed for consideration of further intervention in the a.[facility] Medical History CAD (coronary atherosclerotic disease) Ex-smoker Hx of myocardial infarction Hyperlipidemia Hypertension Tobacco dependence Unstable angina Surgical History History of cardiac cath History of heart artery stent Family History Mother Motor vehicle accident Father Homicide Social History (Updated 01/15/23 @ 15:52 by Michelle Kong RN) Smoking Status: Former smoker years smoked: 35 smoking status stop date: November 2022 alcohol intake: never current occupational status: employed and other Travel in the last 8 weeks: None Review of Systems Review of Systems Review of systems:: pertinent systems reviewed and negative unless documented below Meds Home Medications and Allergies Home Medications Medication Instructions Recorded Confirmed Type nitroglycerin 0.4 mg sublingual 0.4 mg sublingual Q5MINP PRN Chest 01/01/23 01/15/23 History tablet Pain aspirin 81 mg tablet,delayed 81 mg PO DAILY HEART HEALTH 01/15/23 01/15/23 History release atorvastatin 40 mg tablet (Lipitor) 40 mg PO DAILY Cholesterol 01/15/23 01/15/23 History empagliflozin 10 mg tablet 10 mg PO DAILY Diabetes 01/15/23 01/15/23 History (Jardiance) furosemide 40 mg tablet 40 mg PO DAILY Fluid 01/15/23 01/15/23 History losartan 50 mg tablet 50 mg PO DAILY Hypertension 01/15/23 01/15/23 History metoprolol succinate 25 mg 12.5 mg PO DAILY Hypertension 01/15/23 01/15/23 History tablet,extended release 24 hr pantoprazole 40 mg tablet,delayed 40 mg PO DAILY Acid reflux 01/15/23 01/15/23 History release spironolactone 25 mg tablet 25 mg PO DAILY Fluid 01/15/23 01/15/23 History ticagrelor 90 mg tablet (Brilinta) 90 mg PO BID PLATELET INHIBITOR 01/15/23 01/15/23 History New Prescriptions to Start Prescriptions: Allergies Allergy/AdvReac Type Severity Reaction Status Date / Time latex Allergy Verified 01/15/23 10:15 Exam Data for Last 24 hours Vital signs and Labs for Last 24 Hours: Temp Pulse Resp BP Pulse Ox 97.7 F 69 18 131/82 100 01/15/23 15:15 01/15/23 16:00 01/15/23 16:00 01/15/23 16:00 01/15/23 16:00 Laboratory Results - last 24 hr 01/15/23 10:00: WBC 9.0, RBC 4.88, Hgb 14.9, Hct 43.4, MCV 88.9, MCH 30.5, MCHC 34.3, RDW 13.2, Plt Count 202, MPV 8.8, Neut % (Auto) 60.6, Lymph % (Auto) 26.9, Tarrant % (Auto) 8.0, Eos % (Auto) 3.4, Baso % (Auto) 1.1, Neut # (Auto) 5.5, Lymph # (Auto) 2.4, Tarrant # (Auto) 0.7, Eos # (Auto) 0.3, Baso # (Auto) 0.1 01/15/23 10:00: Sodium 136, Potassium 4.1, Chloride 101, Carbon Dioxide 29, Anion Gap 10.1, BUN 15, Creatinine 1.00, Estimated Creat Clear 131, Estimated GFR 78, Est GFR ( Amer) 94, Glucose 238 H, Calcium 8.7 01/15/23 12:47: Activated Clotting Time 308 H* 01/15/23 13:55: Activated Clotting Time 222 H* D I & O for Last 24 hours: Intake & Output 01/12/23 01/13/23 01/14/23 01/15/23 23:59 23:59 23:59 23:59 Output Total 0 / 0 Balance 0 / 0 Weight 109.769 kg Constitutional Constitutional: no acute distress, obese and cooperative *Routine HEENT Exam Head: Present normocephalic Eye: Present EOM
[2023-01-15 20:20] LABS: POC Glucose,Bedside 290 (70-110)
--- NOTE | 2023-01-15 20:37 | PC.NURSE ---
pt rounded on, only request from the pt was more blankets. Blankets were given to the pt and trash was taken out of the room. Pt has no further requests at this time.
[2023-01-16] VITALS: BP 105/63; PULSE 71; PULSE 96; RESP 18; TEMP 37; O2SAT 94
[2023-01-16 04:00] VITALS: BP 111/67; PULSE 71; RESP 18; TEMP 37.7; O2SAT 94; BMI 31.1
[2023-01-16 04:45] VITALS: PULSE 102
--- NOTE | 2023-01-16 05:03 | PC.NURSE ---
PATIENT HAS BEEN NPO SINCE [place] FOR CARDIAC CATH PROCEDURE SCHEDULED FOR TODAY. SINUS RHYTHM ON THE MONITOR. NO C/O PAIN/SOA/DISCOMFORT. DRSG C/D/I TO RIGHT RADIAL. RUNNING LOW GRADE TEMP 99.9 PO.
[2023-01-16 05:52] LABS: POC Glucose,Bedside 183 (70-110)
[2023-01-16 05:57] LABS: Basophils % 0.4 % (0.1-2.0); Eosinophils # 0.2 K/mm3 (0.0-0.4); Eosinophils % 1.8 % (0.1-12.0); Hematocrit 42.5 % (42.0-52.0); Hemoglobin 14.5 g/dL (14.1-18.0); Lymphocytes # 1.1 K/mm3 (0.7-4.5); Lymphocytes % 9.5 % (10-50); Mean Corpuscular HGB Conc 34.1 g/dL (31.8-35.4); Mean Platelet Volume 8.5 fl (7.4-10.4); Monocytes # 0.8 K/mm3 (0.1-1.0); Monocytes % 6.9 % (1.7-9.3); Neutrophils # 9.5 K/mm3 (1.8-7.8); Neutrophils % 81.4 % (37.0-80.0); Platelet Count 206 K/mm3 (142-424); Red Blood Count 4.82 M/mm3 (4.60-6.20); Red Cell Distribution Width 12.8 % (11.5-17.5); White Blood Count 11.7 K/mm3 (4.8-10.8)
[2023-01-16 06:16] LABS: Blood Urea Nitrogen 14 mg/dl (9-20); Calcium 8.4 mg/dl (8.4-10.2); Carbon Dioxide 25 mmol/L (22.0-30.0); Chloride 101 mmol/L (98-107); Creatinine Clearance Estimated 150 mL/min (50-200); Estimated Glomerular Filt Rate 88 ml/min (>60); GFR (African American) 106 ML/MIN (>60); Glucose 179 mg/dl (74-100); Sodium 133 mmol/L (136-145)
[2023-01-16 06:17] LABS: Magnesium 2.2 mg/dl (1.6-2.3)
--- NOTE | 2023-01-16 07:00 | CA_ITS ---
APPROVED REPORT EXAM: Comprehensive 2D, Doppler, and color-flow Echocardiogram Swing Type Lathe Operator: Janie Nieves CRT Ht: 6 ft 3 in Wt: 242lbs BSA: 2.38 BP: 138/72 mmHg Indications: CAD, Hyperlipidemia, Cardiomyopathy, Hypertension/HDD, smoker, ef 40-50% on echo 01/01/23 Conclusion 1. Limited echocardiogram was obtained to evaluate left ventricular systolic function. 2. The estimated ejection fraction is 50% from multiple views. 3. No significant pericardial effusion noted. Electronically signed by : Mo Weber MD 01/16/2023 11:22:33
[2023-01-16 07:47] VITALS: BP 101/59; PULSE 65; RESP 18; TEMP 37.2; O2SAT 97
[2023-01-16 08:00] VITALS: PULSE 84
--- NOTE | 2023-01-16 08:19 | EXP.CARD.PN ---
Subjective Subjective Date: 01/16/23 Time: 08:19 Principal diagnosis: CAD, coronary stenting Interval history: 52-year-old white male admitted overnight after extensive contrast use during cardiac catheterization with stenting of the LAD. Patient did have a dissection of his diagonal artery during the procedure which was left alone. He has had no chest pain overnight. His limited echocardiogram today shows cardiac function stable at 40-50%. Patient is anxious to go home to arrange for his younger brother's who 2 days ago. Patient quit smoking 2 weeks ago. Exam Data for Last 24 hours Vital signs and Labs for Last 24 Hours: Temp Pulse Resp BP Pulse Ox 98.9 F 65 18 101/59 L 97 01/16/23 07:47 01/16/23 07:47 01/16/23 07:47 01/16/23 07:47 01/16/23 07:47 Laboratory Results - last 24 hr 01/15/23 10:00: WBC 9.0, RBC 4.88, Hgb 14.9, Hct 43.4, MCV 88.9, MCH 30.5, MCHC 34.3, RDW 13.2, Plt Count 202, MPV 8.8, Neut % (Auto) 60.6, Lymph % (Auto) 26.9, Crosby % (Auto) 8.0, Eos % (Auto) 3.4, Baso % (Auto) 1.1, Neut # (Auto) 5.5, Lymph # (Auto) 2.4, Crosby # (Auto) 0.7, Eos # (Auto) 0.3, Baso # (Auto) 0.1 01/15/23 10:00: Sodium 136, Potassium 4.1, Chloride 101, Carbon Dioxide 29, Anion Gap 10.1, BUN 15, Creatinine 1.00, Estimated Creat Clear 131, Estimated GFR 78, Est GFR ( Amer) 94, Glucose 238 H, Calcium 8.7 01/15/23 12:47: Activated Clotting Time 308 H* 01/15/23 13:55: Activated Clotting Time 222 H* D 01/15/23 20:13: POC Glucose 290 H 01/16/23 05:30: WBC 11.7 H D, RBC 4.82, Hgb 14.5, Hct 42.5, MCV 88.0, MCH 30.0, MCHC 34.1, RDW 12.8, Plt Count 206, MPV 8.5, Neut % (Auto) 81.4 H, Lymph % (Auto) 9.5 L, Crosby % (Auto) 6.9, Eos % (Auto) 1.8, Baso % (Auto) 0.4, Neut # (Auto) 9.5 H, Lymph # (Auto) 1.1, Crosby # (Auto) 0.8, Eos # (Auto) 0.2, Baso # (Auto) 0.0 01/16/23 05:30: Sodium 133 L, Potassium 4.0, Chloride 101, Carbon Dioxide 25, Anion Gap 11.0, BUN 14, Creatinine 0.90, Estimated Creat Clear 150, Estimated GFR 88, Est GFR ( Amer) 106, Glucose 179 H D, Calcium 8.4 01/16/23 05:30: Magnesium 2.2 01/16/23 05:45: POC Glucose 183 H I & O for Last 24 hours: Intake & Output 01/13/23 01/14/23 01/15/23 01/16/23 11:59 11:59 11:59 11:59 Intake Total 240 / 240 Output Total 700 / 700 Balance -460 / -460 Weight 242 lb 250 lb Constitutional Constitutional: no acute distress *Routine Respiratory Exam Respiratory: Present CTA bilaterally *Routine Cardiovascular Exam Cardiovascular: Present RRR *Routine Extremities Exam Extremities: Absent edema Progress Note: A&P Assessment and plan (1) Coronary artery dissection: Status: Acute (2) Hx of myocardial infarction: Status: Acute (3) CAD (coronary atherosclerotic disease): Status: Acute (4) Hyperglycemia: Status: Acute (5) Tobacco dependence: Status: Acute Assessment and Plan Assessment and Plan for All Diagnoses:: CAD with recent non-STEMI and RCA stenting 2 weeks ago. Stenting of the LAD yesterday with diagonal dissection with DAKOTA-3 flow. No intervention planned at this time. Ischemic cardiomyopathy, stable by limited echo this a.m. EF 40-50% Clinically stable for discharge home. Continue home medications: Atorvastatin 80 mg daily Aspirin 81 mg daily Brilinta 90 mg twice daily Jardiance 10 mg daily Furosemide 40 mg daily Losartan 50 mg daily Metoprolol succinate 12.5 mg daily Spironolactone 25 mg daily Pantoprazole 40 mg daily Follow-up in our office next week
--- NOTE | 2023-01-16 09:16 | EXP.DC.SUM ---
General Admission date:: 01/15/23 Discharge date: 01/16/23 HPI HPI HPI: This is a 52-year-old male that presents to his supervising producer for left heart cath today for coronary artery disease and chronic chest pain. He underwent LAD and first circumflex intervention with drug-eluting stent deployment. He reports that his chest pain has improved and identifies no associated dyspnea or diaphoresis. His left heart cath was complex requiring lithotripsy and 2 vessel stent deployment. Coronary artery dissection was identified. He is being observed for consideration of further intervention in the a.m. Hospital Course Hospital Course Hospital Course: The patient was admitted to the medical unit with cardiac monitoring after his left heart catheterization with stent deployment to the LAD and first diagonal. His left heart cath involved lithotripsy. A coronary artery dissection was identified in the first diagonal and he was observed overnight for any further chest pain or concerns. The patient reported no symptomatology throughout his stay and inquired about discharge home. He reported that his brother recently and was making arrangements. Nursing staff reported that he remained afebrile with stable vital signs and saturated appropriately on room air. His morning labs identified a normal creatinine and stable electrolytes. He will be discharged home as requested to follow-up with his PCP and supervising producer as scheduled. He understands the importance of compliance with his medication regiment which includes dual antiplatelet therapy high-dose statin therapy beta-ava and ARB therapy. We have recommended routine blood pressure monitoring. I spent 35 minutes in [id number] time with the patient and nursing staff concerning the discharge process. We discussed the admitting diagnoses and hospital course. We discussed identified improvement and the patient's desire to be discharged. We reviewed inpatient studies and imaging. The patient voiced understanding on the importance of follow-up with his primary care provider and supervising producer. The patient plans to be compliant with the medication regimen prescribed and follow-up appointments. He understands that he can return to the emergency department with any sudden changes or concerns. Exam Data for Last 24 hours Vital signs and Labs for Last 24 Hours: Temp Pulse Resp BP Pulse Ox 98.9 F 65 18 101/59 L 97 01/16/23 07:47 01/16/23 07:47 01/16/23 07:47 01/16/23 07:47 01/16/23 07:47 Laboratory Results - last 24 hr 01/15/23 10:00: WBC 9.0, RBC 4.88, Hgb 14.9, Hct 43.4, MCV 88.9, MCH 30.5, MCHC 34.3, RDW 13.2, Plt Count 202, MPV 8.8, Neut % (Auto) 60.6, Lymph % (Auto) 26.9, Prentiss % (Auto) 8.0, Eos % (Auto) 3.4, Baso % (Auto) 1.1, Neut # (Auto) 5.5, Lymph # (Auto) 2.4, Prentiss # (Auto) 0.7, Eos # (Auto) 0.3, Baso # (Auto) 0.1 01/15/23 10:00: Sodium 136, Potassium 4.1, Chloride 101, Carbon Dioxide 29, Anion Gap 10.1, BUN 15, Creatinine 1.00, Estimated Creat Clear 131, Estimated GFR 78, Est GFR ( Amer) 94, Glucose 238 H, Calcium 8.7 01/15/23 12:47: Activated Clotting Time 308 H* 01/15/23 13:55: Activated Clotting Time 222 H* D 01/15/23 20:13: POC Glucose 290 H 01/16/23 05:30: WBC 11.7 H D, RBC 4.82, Hgb 14.5, Hct 42.5, MCV 88.0, MCH 30.0, MCHC 34.1, RDW 12.8, Plt Count 206, MPV 8.5, Neut % (Auto) 81.4 H, Lymph % (Auto) 9.5 L, Prentiss % (Auto) 6.9, Eos % (Auto) 1.8, Baso % (Auto) 0.4, Neut # (Auto) 9.5 H, Lymph # (Auto) 1.1, Prentiss # (Auto) 0.8, Eos # (Auto) 0.2, Baso # (Auto) 0.0 01/16/23 05:30: Sodium 133 L, Potassium 4.0, Chloride 101, Carbon Dioxide 25, Anion Gap 11.0, BUN 14, Creatinine 0.90, Estimated Creat Clear 150, Estimated GFR 88, Est GFR ( Amer) 106, Glucose 179 H D, Calcium 8.4 01/16/23 05:30: Magnesium 2.2 03/17/23 05:45: POC Glucose 183 H I & O for Last 24 hours: Intake & Output 01/13/23 01/14/23 01/15/23 01/16/23 23:59 23:59 23:59 23:59 Intake Total 2
--- NOTE | 2023-01-16 09:18 | HMH.PHACL ---
PHA [facility] [employer] Tester Discharge Med Rehabilitation Supervisor: Willard Amaral has received discharge medication counseling on the following medications: -ASPIRIN (ON PREVIOUSLY, NO QUESTIONS) -BRILINTA (ON PREVIOUSLY, NO QUESTIONS) -ATORVASTATIN (ON PREVIOUSLY, NO QUESTIONS) -LOSARTAN (ON PREVIOUSLY, NO QUESTIONS) -METOPROLOL (ON PREVIOUSLY, NO QUESTIONS) PATIENT VERBALIZED NO QUESTIONS AT THIS TIME.
--- NOTE | 2023-01-19 11:34 | CARE MANAGER ---
Contacted patient related to hospital discharge. He did not have any medication changes and is aware of follow up appointment. Denies questions or concerns. BURTON Gaona
== END 2023-01-16 09:39 | disposition home or self-care (01) | DRG 246 ==
LOC: 2ND 14:50
PROVIDERS: Internal Medicine; Admitting Provider Family Medicine; Visit Provider Family Medicine
PROC: 027136Z Dilation of Coronary Artery, Two Arteries with Three Drug-eluting Intraluminal Devices, Percutaneous Approach (ICD-10-PCS; principal; 2023-01-15 08:00)
DX: I25.42 Coronary artery dissection (principal); I21.3 ST elevation (STEMI) myocardial infarction of unspecified site; I25.110 Atherosclerotic heart disease of native coronary artery with unstable angina pectoris; Z87.891 Personal history of nicotine dependence; R07.9 Chest pain, unspecified; G89.29 Other chronic pain; E78.5 Hyperlipidemia, unspecified; Z95.5 Presence of coronary angioplasty implant and graft; R73.9 Hyperglycemia, unspecified; I25.2 Old myocardial infarction; Z79.899 Other long term (current) drug therapy; I25.5 Ischemic cardiomyopathy
CPT/HCPCS: 0715T; 36415; 80048; 82962; 83735; 85025; 85347; 92929; 92941; 93308; 93454; 99152; 99153; C1725; C1760; C1761; C1769; C1876; C9601; C9606; C9803; J1644; Q9967; U0003; U0005

== ENCOUNTER → 2023-03-04 07:58 | Outpatient (CLI) | payer OTHER, SELFPAY ==
--- NOTE | 2023-03-04 09:21 | CT_ITS ---
FINAL REPORT TECHNIQUE: Axial images were obtained from the lung apex to the mid abdomen by computed tomography. This study was performed with techniques to keep radiation doses as low as reasonably achievable (ALARA). Individualized dose reduction techniques using automated exposure control or adjustment of mA and/or kV according to the patient's size were employed. CLINICAL HISTORY: lung cancer screening, PREVIOUS SMOKER, QUIT 3 MOS AGO, SMOKED 1 PPD X 25-30 YEARS FINDINGS: CHEST CT LOW DOSE CTDI vol (mGy): 2.90 DLP (mGy-cm): 106.03 There is no axillary adenopathy. There are multiple calcified lymph nodes throughout the mediastinum. There are densely calcified coronary arteries. The heart is normal in size. There is no pericardial or pleural effusion. There is mild diffuse interstitial opacity throughout both lungs. Limited images of the upper abdomen are unremarkable. IMPRESSION: Diffuse interstitial opacity throughout both lungs. Densely calcified coronary arteries. Lung RADS category 1 S. Recommend 12 month follow-up low-dose chest CT. Reviewed, Interpreted and Dictated by Rick Chavez MD Transcribed by Tri Jordan Authenticated and [facility]
== END ==
PROVIDERS: PCP Emergency Medicine; Visit Provider Internal Medicine Pulmonary Disease
DX: R06.09 Other forms of dyspnea (principal); F17.210 Nicotine dependence, cigarettes, uncomplicated
CPT/HCPCS: 71271; 94060; 94618; 94726; 94729

== ENCOUNTER → 2023-08-12 15:06 | Outpatient (CLI) | payer OTHER, SELFPAY ==
--- NOTE | 2023-08-12 15:07 | CT_ITS ---
FINAL REPORT TECHNIQUE: Axial CT images were performed from the lung apices through the upper abdomen. Sagittal and coronal reformatted images were performed. High-resolution technique was utilized using supine inspiration and expiration and prone inspiration. CLINICAL HISTORY: shortness of breath. smoker COMPARISON: 03/24/2023 FINDINGS: There is no axillary adenopathy. There are calcified mediastinal and hilar nodes. Coronary artery stents are identified. There is diffuse bronchial wall thickening consistent with bronchitis. There is no evidence of emphysema, interstitial fibrosis, or bronchiectasis. There is a micronodular appearance in the lungs, greatest in the right upper lobe. For example as seen on image 21. There is no evidence of air trapping on expiration images. IMPRESSION: Bronchial wall thickening consistent with bronchitis. Micronodular appearance to the lungs, greatest in the right upper lobe. Differential diagnosis would include mycobacterial/fungal diseases. Reviewed, Interpreted and Dictated by Dawit Porter III, MD Transcribed by Tri Jordan Authenticated and [facility]
== END ==
PROVIDERS: PCP Emergency Medicine; Visit Provider Internal Medicine Pulmonary Disease
DX: J84.9 Interstitial pulmonary disease, unspecified (principal); Z87.891 Personal history of nicotine dependence
CPT/HCPCS: 71250

== ENCOUNTER 2023-09-11 10:19 | Emergency (ER) | payer OTHER, SELFPAY ==
--- NOTE | 2023-09-11 10:21 | EXP.UTC ---
Discharge Plan Disposition Patient Disposition: Home, Self-Care Condition: Good Prescriptions Prescriptions: New methylprednisolone [Medrol (Devin)] 4 mg tablets,dose pack 4 mg PO DIRECTED Qty: 21 0RF cyclobenzaprine 10 mg tablet 10 mg PO Q8H PRN (Reason: muscle spasm) Qty: 90 0RF No Action azelastine 205.5 mcg (0.15 %) spray,non-aerosol 2 spray intranasal BID 90 Days Qty: 30 3RF Rx Instructions: administer into each nostril albuterol sulfate 90 mcg/actuation HFA aerosol inhaler 2 inh inhalation QID PRN (Reason: shortness of breath or wheezing) 90 Days Qty: 8.5 2RF atorvastatin [Lipitor] 40 mg tablet 40 mg PO DAILY Qty: 90 3RF furosemide 40 mg tablet 40 mg PO DAILY Qty: 90 3RF losartan 50 mg tablet 50 mg PO DAILY Qty: 90 3RF metoprolol succinate 25 mg tablet extended release 24 hr 12.5 mg PO DAILY Qty: 90 3RF pantoprazole 40 mg tablet,delayed release (DR/EC) 40 mg PO DAILY Qty: 90 3RF spironolactone 25 mg tablet 25 mg PO DAILY Qty: 90 3RF Brilinta 90 mg tablet 90 mg PO BID Qty: 180 3RF aspirin 81 mg tablet,delayed release (DR/EC) 81 mg PO DAILY Jardiance 10 mg tablet 10 mg PO DAILY nitroglycerin 0.4 mg tablet, sublingual 0.4 mg sublingual Q5MINP PRN (Reason: Chest Pain) Rx Instructions: do not exceed 3 doses per episode Referrals Follow up/Referrals: Augustin Victor MD [Primary Care Provider] - See instructions Activity Restrictions/Add. Instructions Additional Instructions/Restrictions: Piriformis stretches Follow up if not improving Clinical Impressions Clinical Impression: Piriformis syndrome of right side Stand Alone Forms Stand Alone Forms: Work/School Release Instructions Patient Instructions: DI for Muscle Spasm Discharge ED Provider: Maki Ramirez [facility] General Stated complaint: Rt hip pain, no accident Time Seen by Provider: 09/11/23 11:11 History of Present Illness Provider Complaint: Right hip pain X 1 week. Patient has had mild, annoying hip pain for several years but for the past week or so it has been quite irritating. Last night he could hardly walk. Hurts in the middle of his right buttock. Feels like bone is grinding on bone. Onset (ago): week(s) Location: buttocks and right Radiation: non-radiation Severity: severe Severity scale (1-10): 7 Quality: burning Consistency: intermittent Exacerbating factors: other (sitting) Treatments prior to arrival: none Related Data Home Medications Medication Instructions Recorded Confirmed nitroglycerin 0.4 mg sublingual 0.4 mg sublingual Q5MINP PRN Chest 01/01/23 05/28/23 tablet Pain aspirin 81 mg tablet,delayed 81 mg PO DAILY HEART HEALTH 01/15/23 05/28/23 release empagliflozin 10 mg tablet 10 mg PO DAILY Diabetes 01/15/23 05/28/23 (Jardiance) Previous Rx's Medication Instructions Recorded atorvastatin 40 mg tablet (Lipitor) 40 mg PO DAILY Cholesterol #90 tabs 02/03/23 furosemide 40 mg tablet 40 mg PO DAILY Fluid #90 tabs 02/03/23 losartan 50 mg tablet 50 mg PO DAILY Hypertension #90 02/03/23 tabs metoprolol succinate 25 mg 12.5 mg PO DAILY Hypertension #90 02/03/23 tablet,extended release 24 hr tabs pantoprazole 40 mg tablet,delayed 40 mg PO DAILY Acid reflux #90 tabs 02/03/23 release spironolactone 25 mg tablet 25 mg PO DAILY Fluid #90 tabs 02/03/23 ticagrelor 90 mg tablet (Brilinta) 90 mg PO BID PLATELET INHIBITOR 02/03/23 #180 tabs azelastine 205.5 mcg (0.15 %) 2 spray intranasal BID 90 days #30 02/18/23 nasal spray mL albuterol sulfate 90 mcg/actuation 2 inh inhalation QID PRN shortness 03/13/23 aerosol inhaler of breath or wheezing 90 days #8.5 grams cyclobenzaprine 10 mg tablet 10 mg PO Q8H PRN muscle spasm #90 09/11/23 tabs methylprednisolone 4 mg tablets in 4 mg PO DIRECTED #21 tabs 09/11/23 a dose pack (Medrol (Devin)) Allergies Allergy/AdvReac Type Severity Reaction Statu
--- NOTE | 2023-09-11 10:29 | XR_ITS ---
FINAL REPORT CLINICAL HISTORY: PAIN FINDINGS: AP and frog leg views of the right hip were obtained. There is no prior exam for comparison. There is no acute fracture or dislocation. There are mild degenerative changes of the hips bilaterally.. Soft tissues are within normal limits. IMPRESSION: Mild degenerative change with no acute osseous abnormality of the right hip. If pain persists, MR is recommended. Reviewed, Interpreted and Dictated by Brunilda Gabriel MD Transcribed by Augusta Schuster Authenticated and [facility]
[2023-09-11 10:35] VITALS: BP 120/70; PULSE 58; RESP 18; TEMP 36.5; O2SAT 98; BMI 30.5
[2023-09-11 10:59] VITALS: BP 120/70; PULSE 58; RESP 18; TEMP 36.5; O2SAT 98
== END 2023-09-11 11:32 | disposition home or self-care (01) ==
PROVIDERS: Emergency Provider Physician Assistant; PCP Emergency Medicine
DX: G57.01 Lesion of sciatic nerve, right lower limb (principal); M25.551 Pain in right hip; I25.119 Atherosclerotic heart disease of native coronary artery with unspecified angina pectoris; I11.9 Hypertensive heart disease without heart failure; E78.5 Hyperlipidemia, unspecified; J84.9 Interstitial pulmonary disease, unspecified; R91.8 Other nonspecific abnormal finding of lung field; Z87.891 Personal history of nicotine dependence
CPT/HCPCS: 73502; 99204; 99212; G0463

== ENCOUNTER 2023-09-25 13:39 | Emergency (ER) | payer OTHER, SELFPAY ==
[2023-09-25 13:40] VITALS: BP 138/78; PULSE 76; RESP 18; TEMP 37; O2SAT 98; BMI 30.7
--- NOTE | 2023-09-25 14:02 | HMH.EDGENADL ---
Discharge Plan Disposition Patient Disposition: Home, Self-Care Prescriptions Prescriptions: No Action azelastine 205.5 mcg (0.15 %) spray,non-aerosol 2 spray intranasal BID 90 Days Qty: 30 3RF Rx Instructions: administer into each nostril albuterol sulfate 90 mcg/actuation HFA aerosol inhaler 2 inh inhalation QID PRN (Reason: shortness of breath or wheezing) 90 Days Qty: 8.5 2RF atorvastatin [Lipitor] 40 mg tablet 40 mg PO DAILY Qty: 90 3RF furosemide 40 mg tablet 40 mg PO DAILY Qty: 90 3RF losartan 50 mg tablet 50 mg PO DAILY Qty: 90 3RF metoprolol succinate 25 mg tablet extended release 24 hr 12.5 mg PO DAILY Qty: 90 3RF pantoprazole 40 mg tablet,delayed release (DR/EC) 40 mg PO DAILY Qty: 90 3RF spironolactone 25 mg tablet 25 mg PO DAILY Qty: 90 3RF Brilinta 90 mg tablet 90 mg PO BID Qty: 180 3RF aspirin 81 mg tablet,delayed release (DR/EC) 81 mg PO DAILY Jardiance 10 mg tablet 10 mg PO DAILY nitroglycerin 0.4 mg tablet, sublingual 0.4 mg sublingual Q5MINP PRN (Reason: Chest Pain) Rx Instructions: do not exceed 3 doses per episode methylprednisolone [Medrol (Devin)] 4 mg tablets,dose pack 4 mg PO DIRECTED Qty: 21 0RF cyclobenzaprine 10 mg tablet 10 mg PO Q8H PRN (Reason: muscle spasm) Qty: 90 0RF Referrals Follow up/Referrals: Augustin Victor MD [Primary Care Provider] - See instructions Activity Restrictions/Add. Instructions Additional Instructions/Restrictions: Call your family doctor to establish care for this visit to the emergency department and schedule follow-up within 48 hours to ensure improvement. If you have any worsening of your condition or any other concerning signs or symptoms, return to the emergency department or your primary care doctor for further evaluation. Do not submerge hand for approximately 48 hours. Stitches can be removed in 7 to 10 days. Clinical Impressions Clinical Impression: Laceration of hand, left Instructions Patient Instructions: DI for Laceration Repair Discharge ED Provider: Edgar Garcia General Adult [facility] General Chief complaint: Wound/Laceration Stated complaint: AO 09/25, left hand lac Time Seen by Provider: 09/25/23 13:40 Mode of Arrival: Ambulatory Source of Information: Patient Limitations: No Limitations Description of Symptoms (Recalled from ER Triage Doc. 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 Happened by an hour prior to arrival. Takes Plavix for CAD. Full range of motion, pain is minimal, came in for stitches. Related Data Home Medications Medication Instructions Recorded Confirmed nitroglycerin 0.4 mg sublingual 0.4 mg sublingual Q5MINP PRN Chest 01/01/23 05/28/23 tablet Pain aspirin 81 mg tablet,delayed 81 mg PO DAILY HEART HEALTH 01/15/23 05/28/23 release empagliflozin 10 mg tablet 10 mg PO DAILY Diabetes 01/15/23 05/28/23 (Jardiance) Previous Rx's Medication Instructions Recorded atorvastatin 40 mg tablet (Lipitor) 40 mg PO DAILY Cholesterol #90 tabs 02/03/23 furosemide 40 mg tablet 40 mg PO DAILY Fluid #90 tabs 02/03/23 losartan 50 mg tablet 50 mg PO DAILY Hypertension #90 02/03/23 tabs metoprolol succinate 25 mg 12.5 mg PO DAILY Hypertension #90 02/03/23 tablet,extended release 24 hr tabs pantoprazole 40 mg tablet,delayed 40 mg PO DAILY Acid reflux #90 tabs 02/03/23 release spironolactone 25 mg tablet 25 mg PO DAILY Fluid #90 tabs 02/03/23 ticagrelor 90 mg tablet (Brilinta) 90 mg PO BID PLATELET INHIBITOR 02/03/23 #180 tabs azelastine 205.5 mcg (0.15 %) 2 spray intranasal BID 90 days #30 02/18/23 nasal spray mL albuterol sulfate 90 mcg/actuation 2 inh inhalation QID
--- NOTE | 2023-09-25 14:13 | PC.NURSE ---
Dr. Garcia at [facility] to suture
[2023-09-25 14:44] VITALS: BP 138/78; PULSE 76; RESP 18; TEMP 37; O2SAT 98
== END 2023-09-25 14:44 | disposition home or self-care (01) ==
PROVIDERS: Emergency Provider Emergency Medicine; PCP Emergency Medicine
DX: S61.412A Laceration without foreign body of left hand, initial encounter (principal); I25.119 Atherosclerotic heart disease of native coronary artery with unspecified angina pectoris; I11.9 Hypertensive heart disease without heart failure; F17.210 Nicotine dependence, cigarettes, uncomplicated; J84.9 Interstitial pulmonary disease, unspecified; R91.8 Other nonspecific abnormal finding of lung field; E78.5 Hyperlipidemia, unspecified; Z79.01 Long term (current) use of anticoagulants; Z57.2 Occupational exposure to dust; W26.8XXA Contact with other sharp object(s), not elsewhere classified, initial encounter; Z23 Encounter for immunization
CPT/HCPCS: 12002; 90715; 96372; 99283